=== PATIENT | male | born 1950 | race Caucasian/White ===

== ENCOUNTER 2023-11-15 09:48 | Outpatient (CLI) | payer OTHER | END 2023-11-15 20:48 | disposition home or self-care (01) | LOC: SNM 09:48 | PROVIDERS: ATTEND Urology | DX: C61 Malignant neoplasm of prostate (principal); M19.012 Primary osteoarthritis, left shoulder; M19.011 Primary osteoarthritis, right shoulder; M46.1 Sacroiliitis, not elsewhere classified; M17.0 Bilateral primary osteoarthritis of knee | CPT/HCPCS: 78306; A9503 ==

== ENCOUNTER 2023-11-16 10:44 | Outpatient (CLI) | payer OTHER ==
[2023-11-16] MEDS ORDERED: DIATR MEGLU/DIATRIZ SOD 30 ML SOLUTION PO ONE (10:56)
[2023-11-16] MEDS ORDERED: iohexoL 240 mgI/mL, 50 ML INFUS..BTL IV ONE (11:07)
== END 2023-11-16 18:09 | disposition home or self-care (01) ==
LOC: SCT 10:44
PROVIDERS: ATTEND Urology
DX: K76.89 Other specified diseases of liver (principal); K57.30 Diverticulosis of large intestine without perforation or abscess without bleeding; N28.1 Cyst of kidney, acquired; K80.20 Calculus of gallbladder without cholecystitis without obstruction; R91.1 Solitary pulmonary nodule; N28.89 Other specified disorders of kidney and ureter; C61 Malignant neoplasm of prostate
CPT/HCPCS: 74178; Q9966; Q9967; Q9964